=== PATIENT | female | born 1985 | race Hispanic/Latino ===

== ENCOUNTER 2020-01-03 13:40 | Inpatient (IN) | payer OTHER ==
[~2020-01-03] VITALS: Ht 154.9 cm; Wt 68.0 kg
--- NOTE | 2020-01-05 08:32 | NUR ---
01/05/20 0832 Jeny Shin 0815 PT ARRIVED TO ROOM 104, PT DENIES PAIN AND NAUSEA. SPINAL LEVEL T-6 AND SPINAL LEVEL EDUCATION GIVEN. VSS. HOB INCREASED SLIGHTLY. PT AT BEDSIDE. 0830 PT HOLDING BABY, DENIES ANY CONCERNS.
--- NOTE | 2020-01-06 08:03 | PR ---
[facility] [address] [facility] [place], [place] [address] Signed PP Progress Notes Datetime Report Generated by MALCOLM: 01/06/2020 08:03 SUBJECTIVE: [id number] Pain: Within Normal Limits Nausea/Vomiting: Denies Flatus: No Vital Signs: [id number] Vital Signs: Reviewed; Within Normal Limits Cardiovascular: Normal Respiratory: Normal Abdomen/Uterus: Abnormal Lochia: Normal Vulva/Perineum: Not Done Breasts: Not Done CVA Tenderness: Not Done Extremities: Normal Incision: Normal Progress: Not Applicable Exam Comments: Abdomen with active BS. Fundus firm, NT @ U-1. H/H 11.8/33.9, WBC 9.8, plat 205k IMPRESSION/PLAN/PROCEDURES: [id number] Impression: Normal Progression Other Plans: ambulate, shower Procedures: None Progress Notes: Doing well but has been reluctant to move. Will increase ambulation and shower. Signing Physician: Gisselle Muse MD Copies: ~ *Electronically Signed* 01/06/20 0803 GISSELLE MUSE MD PATIENT NAME: JRGHADA PROGRESS NOTE DATE OF : 85 PHYSICIAN: GISSELLE MUSE MD RPT #: [id number] REPORT IS CONFIDENTIAL AND NOT TO BE RELEASED WITHOUT AUTHORIZATION
--- NOTE | 2020-01-07 07:27 | PR ---
[facility] [address] [facility] [place], [place] [address] Signed PP Progress Notes Datetime Report Generated by CPJosé Luis: 01/07/2020 07:27 SUBJECTIVE: [id number] Pain: Within Normal Limits Nausea/Vomiting: Denies Flatus: No Vital Signs: [id number] Vital Signs: Reviewed; Within Normal Limits Cardiovascular: Normal Respiratory: Not Done Abdomen/Uterus: Abnormal Lochia: Normal Vulva/Perineum: Not Done Breasts: Not Done CVA Tenderness: Not Done Extremities: Normal Incision: Normal Progress: Not Applicable Exam Comments: Abdomen with active BS. Fundus firm, NT @ U-1. IMPRESSION/PLAN/PROCEDURES: [id number] Impression: Normal Progression Plan: Remove Erlin; Discharge Other Plans: ambulate, shower Procedures: None Progress Notes: Doing well. She is ready for D/C. Signing Physician: Gisselle Muse MD Copies: ~ *Electronically Signed* 01/07/20 0727 GISSELLE MUSE MD PATIENT NAME: GHADA NORRIS PROGRESS NOTE DATE OF : 85 PHYSICIAN: GISSELLE MUSE MD RPT #: [id number] REPORT IS CONFIDENTIAL AND NOT TO BE RELEASED WITHOUT AUTHORIZATION
--- NOTE | 2020-01-08 10:36 | OR ---
[facility] [address] [place], [place] [address] Signed DATE OF OPERATION: 01/05/2020 SURGEON: Gisselle Muse MD CRACKING MACHINE OPERATOR: Álvaro Luna MD. PREOPERATIVE DIAGNOSES: Term , previous section x2. POSTOPERATIVE DIAGNOSIS: Term , previous section x2, delivered. PROCEDURE: Repeat section with low segment transverse uterine incision. ANESTHESIA: Spinal. ESTIMATED BLOOD LOSS: 550 mL. DRAINS: Ontiveros catheter. INDICATIONS AND FINDINGS: The patient is a 34-year-old female, 4, para 2, AB1, who was admitted at 39 weeks for a repeat section. She was delivered of a little boy via lower segment transverse uterine incision with Apgars of 9 and 9 and weight of 9 pounds 10 ounces. There was a loop of cord at the shoulder. The lower uterine segment was extremely thin. The tubes and ovaries were normal. The placenta was large, but otherwise normal. DESCRIPTION OF PROCEDURE: The patient was prepped and draped in the supine position. A repeat Pfannenstiel skin incision was made through her previous scar and carried down through the fascia. The incision was extended laterally. The inferior and superior fascial flaps were then created. The muscles were sharply dissected. The peritoneum was entered and the incision extended bluntly. The Cristopher retractor was then placed. The uterine wall was then scored and entered at the upper aspect of the peritoneal reflection. Again, the Electronically Signed By: GISSELLE MUSE MD 01/08/20 1036 PATIENT NAME: GHADA NORRIS OPERATIVE REPORT DATE OF : 85 REPORT #: [id number] PHYSICIAN: GISSELLE MUSE MD PCP: GISSELLE MUSE MD REPORT IS CONFIDENTIAL AND NOT TO BE RELEASED WITHOUT AUTHORIZATION [facility] [address] [place] [id number] Signed uterine wall was extremely thin. The baby was delivered with the above findings and handed off to the pediatric staff in attendance. The placenta was removed manually and the uterus explored with a lap tape assuring no remaining fragments. The edges of the incision were identified and grasped with T clamps. The uterus was closed in 2 layers using 0 Monocryl. The first layer was a running locking stitch and second was a horizontal imbricating stitch. Following this, bleeding points were controlled on the peritoneal edges with the cautery. The abdomen was copiously irrigated, inspected and good hemostasis was noted. The retractor was removed and the peritoneum identified. An ACell graft was laid over the lower segment to aid in healing. The peritoneum was then closed with a running suture of 3-0 Vicryl. The muscles were brought together with interrupted sutures of 0 Vicryl. Bleeding points were controlled with cautery. This layer was also irrigated and good hemostasis was noted. ACell powder was sprinkled over the muscles to aid in healing. The fascia was then closed from each angle to the midline with a running suture of 0 Vicryl. The subcu tissue was irrigated, inspected and bleeding points controlled with cautery. The incision edges were reapproximated with interrupted sutures of 3-0 Vicryl. The skin was closed with shaka. All sponge and needle counts were correct. She tolerated procedure well and was taken to the recovery room in good condition. Gisselle Muse MD PJW/MODL /[id number] cc: Álvaro Luna MD Copies: ÁLVARO LUNA MD ~ Electronically Signed By: GISSELLE MUSE MD 01/08/20 1036 PATIENT NAME: GHADA NORRIS OPERATIVE REPORT DATE OF : 85 REPORT #: [id number] PHYSICIAN: GISSELLE MUSE MD PCP: GISSELLE MUSE MD REPORT IS CONFIDENTIAL AND NOT TO BE RELEASED WITHOUT AUTHORIZATION
== END 2020-01-07 10:25 | disposition home or self-care (01) | DRG 787 ==
LOC: FBC 01-05 05:05 → MS 01-05 16:15 → FBC 01-05 16:16
PROVIDERS: ADMIT Obstetrics & Gynecology
PROC: 10D00Z1 Extraction of Products of Conception, Low, Open Approach (ICD-10-PCS; principal; 2020-01-05 06:45)
DX: O34.211 Maternal care for low transverse scar from previous cesarean delivery (principal); O99.354 Diseases of the nervous system complicating childbirth; O32.2XX0 Maternal care for transverse and oblique lie, not applicable or unspecified; G43.009 Migraine without aura, not intractable, without status migrainosus; N85.8 Other specified noninflammatory disorders of uterus; O69.82X0 Labor and delivery complicated by other cord entanglement, without compression, not applicable or unspecified; Z3A.39 39 weeks gestation of pregnancy; Z37.0 Single live birth
CPT/HCPCS: 01961; 36415; 85027; A9270; J0690; J1100; J1885; J2001; J2274; J2370; J2405; J2590; J3010; J7121

== ENCOUNTER 2025-03-22 13:47 | Emergency (ER) | payer BC, OTHER ==
[~2025-03-22] VITALS: Ht 172.7 cm; Wt 63.0 kg
[2025-03-22] MEDS ORDERED: ASPIRIN 81 MG CHEW PO ONE (14:00)
[2025-03-22 14:16] LABS: BASOPHILS 0.4 % (0.1-1.2); EOSINOPHILS 2.9 % (0.7-5.8); LYMPHOCYTES 21.8 % (19.3-51.7); MCH 31.1 PG (25.6-32.2); MCHC 33.6 g/dL (32.2-35.5); MCV 92.4 fL (79.4-94.8); MONOCYTES 7.9 % (4.7-12.5); NEUTROPHILS 66.8 % (34.0-71.1); RBC 4.63 M/uL (3.93-5.22)
[2025-03-22 14:34] LABS: ALT (SGPT) 16.0 U/L (14-59); AST (SGOT) 15.0 U/L (15-37); GLOMERULAR FILTRATION RATE,EST 117.0 mL/min (>60); PROTEIN, TOTAL 8.3 g/dL (6.4-8.2); UREA NITROGEN 14.0 mg/dL (7-18)
[2025-03-22] MEDS ORDERED: FAMOTIDINE 20 MG/ 2 ML VIAL IV ONE (15:00)
[2025-03-22 16:17] VITALS: BP 122/86
--- NOTE | 2025-03-23 07:41 | EKG ---
[facility] [address] [facility] [place] [address] Signed Sinus tachycardia Nonspecific ST abnormality Abnormal ECG No previous ECGs available Confirmed by Isabel Parekh DO ([id number]) on 03/23/2025 7:41:25 AM Electronically Signed By: ISABEL PAREKH DO 03/23/25 0741 PATIENT NAME: GHADA NORRIS Electrocardiogram DATE OF : 85 PHYSICIAN: ISABEL PAREKH DO REPORT #: [id number] REPORT IS CONFIDENTIAL AND NOT TO BE RELEASED WITHOUT AUTHORIZATION
== END 2025-03-22 16:17 | disposition home or self-care (01) ==
LOC: ED 13:47
PROVIDERS: Emergency Medicine
DX: K20.90 Esophagitis, unspecified without bleeding (principal)
CPT/HCPCS: 36415; 71045; 71260; 80053; 83735; 84484; 85025; 85379; 93005; 93010; 96374; 99285-25; A9270; Q9967